=== PATIENT | male | born 1995 | race Caucasian/White ===

== ENCOUNTER 2017-03-23 18:04 | Emergency (ER) | payer OTHER ==
[2017-03-23 18:09] VITALS: BP 118/76; PULSE 118; RESP 20; TEMP 100.1
--- NOTE | 2017-03-23 18:24 | ED ---
General Adult HPI - General Chief complaint: Recheck/Abnormal Lab/Rx Stated complaint: pain tail bone Time Seen by Provider: 03/23/17 18:13 Source: patient, RN notes reviewed Mode of arrival: ambulatory Limitations: no limitations - History of Present Illness Initial comments: 22 yo male presents to the ER with a chief complaint of elbow pain. The patient states that he has had this for a few days. The patient states that there has been no drainage from the area. He denies any history of this. He denies any nausea vomiting fever or chills. He states he was concerned due to the increased pains without that he should be evaluated. There is no falls traumas or injury. Patient denies any recent fever, chills, shortness of breath , chest pain, back pain, abdominal pain, nausea vomiting, numbness or tingling, dysuria or hematuria, constipation or diarrhea, headaches or visual changes, or any other current symptoms. - Related Data Previous Rx's Medication Instructions Recorded Cephalexin [Keflex] 500 mg PO Q6HR #40 cap 03/23/17 Sulfamethox-Tmp 800-160Mg [Bactrim 2 each PO Q12HR #56 tab 03/23/17 DS 800-160 mg] Allergies Allergy/AdvReac Type Severity Reaction Status Date / Time No Known Allergies Allergy Verified 03/23/17 18:09 Review of Systems ROS Statement: Those systems with pertinent positive or pertinent negative responses have been documented in the HPI. ROS Other: All systems not noted in ROS Statement are negative. Past Medical History Past Medical History: No Reported History History of Any Multi-Drug Resistant Organisms: None Reported Past Surgical History: Tonsillectomy Past Psychological History: No Psychological Hx Reported Smoking Status: Current every day smoker Past Alcohol Use History: Rare Past Drug Use History: Marijuana General Exam Limitations: no limitations General appearance: alert, in no apparent distress ENT exam: Present: normal exam, mucous membranes moist Neck exam: Present: normal inspection. Absent: tenderness, meningismus, lymphadenopathy Respiratory exam: Present: normal lung sounds bilaterally. Absent: respiratory distress, wheezes, rales, rhonchi, stridor Cardiovascular Exam: Present: regular rate, normal rhythm, normal heart sounds. Absent: systolic murmur, diastolic murmur, rubs, gallop, clicks Extremities exam: Present: normal inspection, full ROM, normal capillary refill. Absent: tenderness, pedal edema, joint swelling, calf tenderness Back exam: Present: full ROM, other (Appears to have a pilonidal cyst). Absent : tenderness, CVA tenderness (R), CVA tenderness (L) Neurological exam: Present: alert, oriented X3 Skin exam: Present: warm, dry, intact, normal color. Absent: rash Course Vital Signs 03/23/17 18:06 Temperature 100.1 F H Pulse Rate 118 H Respiratory 20 Rate Blood Pressure 118/76 O2 Sat by Pulse 98 Oximetry Procedures - Procedures Initial comment: Dear was cleaned and prepped. 18-gauge needle was used to excise the lesion. No purulent material was excised. Only blood. Medical Decision Making - Medical Decision Making 22-year-old male presents with appears to be a pilonidal cyst. At this time the cyst was both an 18-gauge needle and no purulent material was excised. At this time we did discuss that we will continue antibiotics for the patient. We discussed sitz bath we discussed warm compresses and care. We did discuss that he will most likely need to return for drainage in one to 2 days. The patient stated that he understood. Plan questions have been answered. They will be discharged. Disposition Clinical Impression: Pilonidal disease Disposition: HOME SELF-CARE Condition: Stable Instructions: Abscess (ED) Additional Instructions: Please use medication as discussed. Please follow up with family doctor if symptoms have not improved over the next two days. Please return to the emergency room if your symptoms increase or worsen or for any other concerns. Prescriptions: Cephalexin [Keflex] 500 mg PO Q6HR #40 cap Sulfamethox-Tmp 800-160Mg [Bactrim DS 800-160 mg] 2 each PO Q12HR #56 tab Referrals: Macario Suh MD [STAFF PHYSICIAN] - 1-2 days Time of Disposition: 18:28
[2017-03-23] MEDS ORDERED: HYDROcodone/APAP 5-325MG 1 EACH TAB PO STA (18:28)
--- NOTE | 2017-04-24 18:03 | CDI ---
Documentation Clarification OP Dear Ms. Fox We need an addendum clarifying whether a true "excision" of pilonidal cyst was done OR if procedure was "incision & drainage" of pilonidal cyst. You describe using a "needle" which tends to be used in [employer]. We usually see "knife" or "scalpel" used for "excision" procedures. Can you do an addendum clarifying? Perhaps the "Dragon" did not "hear" you correctly. Thank you, Katerin Phan Pharmacist Apprentice [facility]
== END 2017-03-23 18:38 | disposition home or self-care (01) ==
LOC: EC 18:04
DX: L05.91 Pilonidal cyst without abscess (principal); F17.200 Nicotine dependence, unspecified, uncomplicated
CPT/HCPCS: 10080; 99283

== ENCOUNTER 2017-03-27 20:55 | Inpatient (IN) | payer OTHER ==
[2017-03-27] MEDS ORDERED: HYDROcodone/APAP 5-325MG 1 EACH TAB PO STA (21:16)
--- NOTE | 2017-03-27 21:18 | ED ---
Skin/Abscess/FB HPI - General Chief complaint: Skin/Abscess/Foreign Body Stated complaint: Back Pain Time Seen by Provider: 03/27/17 21:04 Source: patient Mode of arrival: ambulatory Limitations: no limitations - History of Present Illness Initial comments: This patient is a 22-year-old man who presents to be evaluated for what he believes is a pilonidal cyst. The patient first noticed changes near his tailbone a little under a week ago. There was a little bit of swelling and tenderness. This increased over the following couple days and he was seen here about 3 days ago. He explains that the provider put a needle into the cyst to see if any fluid could be obtained and nothing was expressed. He was given course of antibiotics which she states she has been taking and noted that the swelling there had increased and he is having more tenderness. In addition the patient noted fever today. Patient denies any other symptoms. No change in urination or bowel movements. MD complaint: abscess/boil Onset/Timin -: week(s) (1) Tetanus Up to Date: yes Location: buttocks Severity: moderate Quality: aching Consistency: constant Improves with: none Worsens with: palpation Context: none Associated symptoms: fever Treatments Prior to Arrival: antibiotic (Bactrim and Keflex), prescription analgesic - Related Data Home Medications Medication Instructions Recorded Confirmed Sulfamethox-Tmp 800-160Mg [Bactrim 2 tab PO Q12HR 03/27/17 03/27/17 DS 800-160 mg] Previous Rx's Medication Instructions Recorded Cephalexin [Keflex] 500 mg PO Q6HR #40 cap 03/23/17 Allergies Allergy/AdvReac Type Severity Reaction Status Date / Time No Known Allergies Allergy Verified 03/27/17 21:47 Review of Systems ROS Statement: Those systems with pertinent positive or pertinent negative responses have been documented in the HPI. ROS Other: All systems not noted in ROS Statement are negative. Constitutional: Reports: fever. Denies: chills Respiratory: Denies: cough, dyspnea Cardiovascular: Denies: chest pain, palpitations Gastrointestinal: Denies: vomiting, diarrhea Genitourinary: Denies: dysuria Musculoskeletal: Denies: back pain Skin: Reports: as per HPI, lesions Past Medical History Past Medical History: No Reported History History of Any Multi-Drug Resistant Organisms: None Reported Past Surgical History: Tonsillectomy Past Psychological History: No Psychological Hx Reported Smoking Status: Current every day smoker Past Alcohol Use History: Rare Past Drug Use History: Marijuana General Exam Limitations: no limitations General appearance: alert, in no apparent distress Eye exam: Present: normal appearance Respiratory exam: Present: normal lung sounds bilaterally. Absent: respiratory distress, wheezes, rales, rhonchi, stridor Cardiovascular Exam: Present: normal rhythm, tachycardia (The rate is 108 at my exam), normal heart sounds. Absent: systolic murmur, diastolic murmur, rubs, gallop GI/Abdominal exam: Present: soft. Absent: tenderness, guarding, rebound Extremities exam: Present: normal inspection, normal capillary refill. Absent: pedal edema, calf tenderness Skin exam: Present: warm, dry, intact, normal color, other (Patient has an approximately 2 and half centimeter diameter pilonidal cyst with small amount of overlying erythema and some mild to moderate tenderness.) Course Vital Signs 03/27/17 20:59 Temperature 101.8 F H Pulse Rate 120 H Respiratory 16 Rate Blood Pressure 116/58 O2 Sat by Pulse 95 Oximetry Medical Decision Making - Lab Data Result diagrams: 03/27/17 22:20 03/27/17 22:20 Lab Results 03/27/17 03/27/17 Range/Units 22:20 22:20 WBC 14.5 H (3.8-10.6) k/uL RBC 4.17 L (4.30-5.90) m/uL Hgb 12.4 L (13.0-17.5) gm/dL Hct 34.7 L (39.0-53.0) % MCV 83.1 (80.0-100.0) fL MCH 29.7 (25.0-35.0) pg MCHC 35.7 (31.0-37.0) g/dL RDW 13.0 (11.5-15.5) % Plt Count 318 (150-450) k/uL Neutrophils % 77 % Lymphocytes % 11 % Monocytes % 7 % Eosinophils % 2 % Basophils % 1 % Neutrophils # 11.2 H (1.3-7.7) k/uL Lymphocytes # 1.6 (1.0-4.8) k/uL Monocytes # 1.1 H (0-1.0) k/uL Eosinophils # 0.3 (0-0.7) k/uL Basophils # 0.1 (0-0.2) k/uL Sodium 139 (137-145) mmol/L Potassium 4.1 (3.5-5.1) mmol/L Chloride 103 (98-107) mmol/L Carbon Dioxide 23 (22-30) mmol/L Anion Gap 13 mmol/L BUN 16 (9-20) mg/dL Creatinine 1.20 (0.66-1.25) mg/dL Est GFR (MDRD) Af Amer >60 (>60 ml/min/1.73 sqM) Est GFR (MDRD) Non-Af >60 (>60 ml/min/1.73 sqM) Glucose 87 (74-99) mg/dL Calcium 9.5 (8.4-10.2) mg/dL Disposition Clinical Impression: Pilonidal abscess Disposition: ADMITTED IP TO THIS HOSP Condition: Fair Referrals: None,Stated [Primary Care Provider] - 1-2 days
[2017-03-27] MEDS ORDERED: RX INFO: IV CONTRAST WAS GIVEN 1 EACH MISC MISCELLANE PRN (21:23)
[2017-03-27] MEDS ORDERED: IBUPROFEN 400 MG TAB PO STA (21:25)
[2017-03-27 22:35] LABS: Basophils # (A) 0.1 k/uL (0-0.2); Basophils % (A) 1 %; CH 30.1; CHCM 36.4; Eosinophils # (A) 0.3 k/uL (0-0.7); Eosinophils % (A) 2 %; HCT 34.7 % (39.0-53.0); HDW 3.31; HGB 12.4 gm/dL (13.0-17.5); Luc # (Auto) 0.27; Luc % (Auto) 2; Lymphocytes # (A) 1.6 k/uL (1.0-4.8); Lymphocytes % (A) 11 %; MCH 29.7 pg (25.0-35.0); MCHC 35.7 g/dL (31.0-37.0); MCV 83.1 fL (80.0-100.0); Mean Platelet Volume 6.4; Monocytes # (A) 1.1 k/uL (0-1.0); Monocytes % (A) 7 %; Neutrophils # (A) 11.2 k/uL (1.3-7.7); Neutrophils % (A) 77 %; RBC 4.17 m/uL (4.30-5.90); WBC 14.5 k/uL (3.8-10.6); WBC (Perox) 14.43
[2017-03-27 22:46] LABS: Anion Gap 13 mmol/L; Blood Urea Nitrogen 16 mg/dL (9-20); Calcium 9.5 mg/dL (8.4-10.2); Carbon Dioxide 23 mmol/L (22-30); Chloride 103 mmol/L (98-107); Glucose 87 mg/dL (74-99); Non-African American GFR(MDRD) >60 (>60 ml/min/1.73 sqM); Potassium 4.1 mmol/L (3.5-5.1); Sodium 139 mmol/L (137-145)
--- NOTE | 2017-03-27 22:56 | CT ---
EXAM: CT Pelvis With Intravenous Contrast. CLINICAL HISTORY: Reason: evaluate pilonidal cyst TECHNIQUE: Axial computed tomography images of the pelvis with intravenous contrast. CTDI is 14.9 mGy and DLP is 441.2 mGy-cm. This CT exam was performed using one or more of the following dose reduction techniques: automated exposure control, adjustment of the mA and/or kV according to patient size, and/or use of iterative reconstruction technique. COMPARISON: No relevant prior studies available. FINDINGS: Bowel: Unremarkable. No obstruction. No mucosal thickening. Appendix: No findings to suggest acute appendicitis. Bladder: Unremarkable. No mass. Reproductive: Unremarkable as visualized. Lymph nodes: Unremarkable. No enlarged lymph nodes. Vasculature: Unremarkable. No distal aortic aneurysm. Bones: Thick walled hypodense structure with surrounding inflammatory change is noted overlying the inferior aspect of the sacrum measuring 4.7 x 3.6 x 2.6 cm in size. No gas is contained within this lesion. Although the deep margins of this lesion closely approximate the underlying sacral bone, there is no cortical erosion. No acute fracture. IMPRESSION: 4.7 x 3.6 x 2.6 cm thick walled structure with surrounding inflammatory change overlying the inferior sacrum, most suggestive of abscess or evolving hematoma.
[2017-03-27] MEDS ORDERED: VANCOMYCIN 1,500 MG in SODIUM CHLORIDE 0.9% 250 ML IVPB ONE (23:24)
[2017-03-28] MEDS ORDERED: ONDANSETRON 4 MG/2 ML VIAL IVP PRN
[2017-03-28] MEDS ORDERED: NALOXONE 0.4 MG/ML 1 ML VIAL IV PRN
[2017-03-28] MEDS: SODIUM CHLORIDE 0.9% 1,000 ML IV SCH ×3 (00:16→15:44)
[2017-03-28] MEDS: ACETAMINOPHEN TAB 325 MG TAB PO PRN ×3 (03:19→23:35)
[2017-03-28 07:24] LABS: Basophils # (A) 0.1 k/uL (0-0.2); Basophils % (A) 0 %; CH 29.6; CHCM 35.2; Eosinophils # (A) 0.3 k/uL (0-0.7); Eosinophils % (A) 2 %; HCT 36.3 % (39.0-53.0); HDW 3.38; HGB 12.5 gm/dL (13.0-17.5); Luc % (Auto) 2; Lymphocytes # (A) 1.5 k/uL (1.0-4.8); Lymphocytes % (A) 11 %; MCHC 34.4 g/dL (31.0-37.0); MCV 84.4 fL (80.0-100.0); Mean Platelet Volume 6.6; Monocytes % (A) 7 %; Neutrophils # (A) 10.6 k/uL (1.3-7.7); Neutrophils % (A) 77 %; RBC 4.31 m/uL (4.30-5.90); RDW 12.9 % (11.5-15.5); WBC 13.8 k/uL (3.8-10.6); WBC (Perox) 14.27
[2017-03-28 07:41] LABS: Anion Gap 9 mmol/L; Blood Urea Nitrogen 15 mg/dL (9-20); Carbon Dioxide 25 mmol/L (22-30); Chloride 105 mmol/L (98-107); Glucose 83 mg/dL (74-99); Non-African American GFR(MDRD) >60 (>60 ml/min/1.73 sqM); Potassium 4.5 mmol/L (3.5-5.1); Sodium 139 mmol/L (137-145)
[2017-03-28] MEDS: HYDROmorphone 2 MG/ML 1 ML SYRINGE IVP PRN ×5 (07:49→21:55)
[2017-03-28] MEDS ORDERED: IV VANCOMYCIN PER PHARMACY 1 EACH MISC MISCELLANE PRN (11:46)
--- NOTE | 2017-03-28 11:49 | P.PN ---
Progress Note - Text Patient seen and evaluated. Plan for surgery tomorrow, late morning.
[2017-03-28] MEDS: VANCOMYCIN 1,500 MG in SODIUM CHLORIDE 0.9% 250 ML IVPB SCH ×2 (12:42→17:29)
[2017-03-28] MEDS ORDERED: HYDROmorphone 1 MG/ML 1 ML SYRINGE IVP PRN (19:50)
[2017-03-28] MEDS ORDERED: LACTATED RINGERS 1,000 ML IV SCH (20:00)
[2017-03-28] MEDS: KETOROLAC 30 MG/ML 1 ML VIAL IVP SCH (23:04)
[2017-03-28] MEDS: AMPICILLIN-SULBACTAM 3 GM in SODIUM CHLORIDE 0.9% 100 ML IVPB SCH (23:05)
[2017-03-29] MEDS: SODIUM CHLORIDE 0.9% 1,000 ML IV SCH ×4 (00:17→20:48)
[2017-03-29] MEDS: VANCOMYCIN 1,500 MG in SODIUM CHLORIDE 0.9% 250 ML IVPB SCH ×3 (00:17→20:16)
[2017-03-29] MEDS: HYDROmorphone 2 MG/ML 1 ML SYRINGE IVP PRN ×5 (01:21→20:49)
[2017-03-29] MEDS: AMPICILLIN-SULBACTAM 3 GM in SODIUM CHLORIDE 0.9% 100 ML IVPB SCH ×3 (05:47→20:14)
[2017-03-29] MEDS: KETOROLAC 30 MG/ML 1 ML VIAL IVP SCH ×3 (05:47→20:01)
--- NOTE | 2017-03-29 08:22 | P.GSCN ---
History of Present Illness Consult date: 03/28/17 Reason for Consult: Pilonidal cyst, buttock abscess Requesting physician: Yoni Bowling History of present illness: The patient is a 22-year-old gentleman who presented to the emergency room 2 different occasions for a painful pilonidal cyst. He was treated as outpatient with Bactrim antibiotics which his symptoms have progressed. He now presents with fevers, chills including increasing pain and swelling of the buttock. CT of the abdomen and pelvis is consistent with a deep subcutaneous infection. Given his presentation of leukocytosis, fevers and failed outpatient management , Gen. surgery is asked for consultation and subsequent admission. Review of Systems REVIEW OF ORGAN SYSTEMS: CONSTITUTIONAL: Has fever and chills. Denies recent weight loss or weight gain. HEENT: Denies any trouble with vision, hearing or nosebleeds. Wears glasses. No difficulty swallowing. LYMPHATIC: The patient denies any lumps and bumps around the neck. ENDOCRINE: Denies any thyroid disorders. Denies any blood sugar glucose intolerance. RESPIRATORY: Denies pneumonia. Denies any troubles with breathing or dyspnea on exertion. CARDIOVASCULAR: Denies any chest pain, palpitations, or recent heart attacks. GASTROINTESTINAL: Denies heart burn, constipation or bright red blood per rectum. GENITOURINARY: Denies any blood in urine or increased urinary frequency. MUSCULOSKELETAL: Denies any back pain, stiffness, joint arthritis. NEUROLOGIC: Denies any numbness or tingling along the distal extremities. No seizure disorders or headaches. PSYCHIATRIC: Denies depression or suidical ideation. HEMATOLOGIC: Denies any abnormal bleeding or bruising. BREASTS: Denies any breast lumps, pain or nipple discharge. Past Medical History Past Medical History: No Reported History Additional Past Medical History / Comment(s): transgender History of Any Multi-Drug Resistant Organisms: None Reported Past Surgical History: Tonsillectomy Past Psychological History: No Psychological Hx Reported Smoking Status: Current every day smoker Past Alcohol Use History: Rare Past Drug Use History: Marijuana - Past Family History Mother Family Medical History: No Reported History Medications and Allergies Home Medications Medication Instructions Recorded Confirmed Type Sulfamethox-Tmp 800-160Mg [Bactrim 2 tab PO Q12HR 03/27/17 03/27/17 History DS 800-160 mg] Allergies Allergy/AdvReac Type Severity Reaction Status Date / Time No Known Allergies Allergy Verified 03/27/17 21:47 Surgical - Exam Vital Signs Temp Pulse Resp BP Pulse Ox 101.8 F H 120 H 16 116/58 95 03/27/17 20:59 03/27/17 20:59 03/27/17 20:59 03/27/17 20:59 03/27/17 20:59 GENERAL: Well developed and in no acute distress. Pleasant. HEENT: No sclera icterus. Extraocular movements grossly intact. Moist buccal mucosa. Head is atraumatic, normocephalic. Hears conversational speech. No nasal drainage. NECK: Supple without lymphadenopathy. No JV distention. CHEST: Non-labored respirations and equal bilateral excursions. CARDIOVASCULAR: Regular rate and rhythm. Palpable 2+ radial pulses. ABDOMEN: Soft, nontender. Nondistended. MUSCULOSKELETAL: No clubbing, cyanosis or edema. NEUROLOGIC: No focal or lateralizing signs. PSYCH: Appropriate affect. Alert and oriented to person, place and time. SKIN: Pilonidal cyst with moderate erythema and cellulitis. Results - Labs 03/28/17 06:54 03/28/17 06:54 Abnormal Lab Results - Last 24 Hours (Table) 03/27/17 03/28/17 Range/Units 22:20 06:54 WBC 14.5 H 13.8 H (3.8-10.6) k/uL RBC 4.17 L (4.30-5.90) m/uL Hgb 12.4 L 12.5 L (13.0-17.5) gm/dL Hct 34.7 L 36.3 L (39.0-53.0) % Neutrophils # 11.2 H 10.6 H (1.3-7.7) k/uL Monocytes # 1.1 H (0-1.0) k/uL Diabetes panel 03/27/17 03/28/17 Range/Units 22:20 06:54 Sodium 139 139 (137-145) mmol/L Potassium 4.1 4.5 (3.5-5.1) mmol/L Chloride 103 105 (98-107) mmol/L Carbon Dioxide 23 25 (22-30) mmol/L BUN 16 15 (9-20) mg/dL Creatinine 1.20 1.12 (0.66-1.25) mg/dL Glucose 87 83 (74-99) mg/dL Calcium 9.5 9.0 (8.4-10.2) mg/dL Calcium panel 03/27/17 03/28/17 Range/Units 22:20 06:54 Calcium 9.5 9.0 (8.4-10.2) mg/dL Pituitary panel 03/27/17 03/28/17 Range/Units 22:20 06:54 Sodium 139 139 (137-145) mmol/L Potassium 4.1 4.5 (3.5-5.1) mmol/L Chloride 103 105 (98-107) mmol/L Carbon Dioxide 23 25 (22-30) mmol/L BUN 16 15 (9-20) mg/dL Creatinine 1.20 1.12 (0.66-1.25) mg/dL Glucose 87 83 (74-99) mg/dL Calcium 9.5 9.0 (8.4-10.2) mg/dL Adrenal panel 03/27/17 03/28/17 Range/Units 22:20 06:54 Sodium 139 139 (137-145) mmol/L Potassium 4.1 4.5 (3.5-5.1) mmol/L Chloride 103 105 (98-107) mmol/L Carbon Dioxide 23 25 (22-30) mmol/L BUN 16 15 (9-20) mg/dL Creatinine 1.20 1.12 (0.66-1.25) mg/dL Glucose 87 83 (74-99) mg/dL Calcium 9.5 9.0 (8.4-10.2) mg/dL - Imaging CT scan - pelvis: report reviewed (Moderate erythema and induration with pilonidal cyst and no intra-abdominal pathology), image reviewed Assessment and Plan (1) Failure of outpatient treatment Status: Acute (2) Leukocytosis Status: Acute (3) Sepsis Status: Acute (4) Fever Status: Acute (5) Fever and chills Status: Acute (6) Pilonidal abscess Status: Acute (7) Pilonidal disease Status: Acute Plan: 1. Anticipated inpatient hospitalization over 2 nights for sepsis and pilonidal cyst and failed outpatient management. 2. Recommend incision and drainage with packing reviewed. 3. Will need home health care for wound care management. 4. IV antibiotics to include vancomycin with pharmacy to dose. 5. DVT prophylaxis. 6. Incentive spirometer.
[2017-03-29 08:24] LABS: Basophils # (A) 0.1 k/uL (0-0.2); Basophils % (A) 0 %; CH 29.4; CHCM 34.5; Eosinophils # (A) 0.3 k/uL (0-0.7); Eosinophils % (A) 2 %; HCT 34.9 % (39.0-53.0); HGB 12.1 gm/dL (13.0-17.5); Luc # (Auto) 0.27; Luc % (Auto) 2; Lymphocytes # (A) 1.8 k/uL (1.0-4.8); Lymphocytes % (A) 12 %; MCH 29.7 pg (25.0-35.0); MCHC 34.7 g/dL (31.0-37.0); MCV 85.6 fL (80.0-100.0); Mean Platelet Volume 6.4; Monocytes # (A) 0.9 k/uL (0-1.0); Monocytes % (A) 6 %; Neutrophils # (A) 11.8 k/uL (1.3-7.7); Neutrophils % (A) 79 %; Poikilocytosis Slight; RBC 4.08 m/uL (4.30-5.90); RDW 12.9 % (11.5-15.5); WBC 15.1 k/uL (3.8-10.6); WBC (Perox) 15.95
--- NOTE | 2017-03-29 08:25 | P.GSHP ---
History of Present Illness H&P Date: 03/28/17 Reason for Admission: Pilonidal cyst, buttock abscess History of present illness: The patient is a 22-year-old gentleman who presented to the emergency room 2 different occasions for a painful pilonidal cyst. He was treated as outpatient with Bactrim antibiotics which his symptoms have progressed. He now presents with fevers, chills including increasing pain and swelling of the buttock. CT of the abdomen and pelvis is consistent with a deep subcutaneous infection. Given his presentation of leukocytosis, fevers and failed outpatient management , Gen. surgery is asked for consultation and subsequent admission. Review of Systems REVIEW OF ORGAN SYSTEMS: CONSTITUTIONAL: Has fever and chills. Denies recent weight loss or weight gain. HEENT: Denies any trouble with vision, hearing or nosebleeds. Wears glasses. No difficulty swallowing. LYMPHATIC: The patient denies any lumps and bumps around the neck. ENDOCRINE: Denies any thyroid disorders. Denies any blood sugar glucose intolerance. RESPIRATORY: Denies pneumonia. Denies any troubles with breathing or dyspnea on exertion. CARDIOVASCULAR: Denies any chest pain, palpitations, or recent heart attacks. GASTROINTESTINAL: Denies heart burn, constipation or bright red blood per rectum. GENITOURINARY: Denies any blood in urine or increased urinary frequency. MUSCULOSKELETAL: Denies any back pain, stiffness, joint arthritis. NEUROLOGIC: Denies any numbness or tingling along the distal extremities. No seizure disorders or headaches. PSYCHIATRIC: Denies depression or suidical ideation. HEMATOLOGIC: Denies any abnormal bleeding or bruising. BREASTS: Denies any breast lumps, pain or nipple discharge. Surgical - Exam GENERAL: Well developed and in no acute distress. Pleasant. HEENT: No sclera icterus. Extraocular movements grossly intact. Moist buccal mucosa. Head is atraumatic, normocephalic. Hears conversational speech. No nasal drainage. NECK: Supple without lymphadenopathy. No JV distention. CHEST: Non-labored respirations and equal bilateral excursions. CARDIOVASCULAR: Regular rate and rhythm. Palpable 2+ radial pulses. ABDOMEN: Soft, nontender. Nondistended. MUSCULOSKELETAL: No clubbing, cyanosis or edema. NEUROLOGIC: No focal or lateralizing signs. PSYCH: Appropriate affect. Alert and oriented to person, place and time. SKIN: Pilonidal cyst with moderate erythema and cellulitis. Results - Imaging CT scan - pelvis: report reviewed (Moderate erythema and induration with pilonidal cyst and no intra-abdominal pathology), image reviewed Past Medical History Past Medical History: No Reported History Additional Past Medical History / Comment(s): transgender History of Any Multi-Drug Resistant Organisms: None Reported Past Surgical History: Tonsillectomy Past Psychological History: No Psychological Hx Reported Smoking Status: Current every day smoker Past Alcohol Use History: Rare Past Drug Use History: Marijuana - Past Family History Mother Family Medical History: No Reported History Medications and Allergies Home Medications Medication Instructions Recorded Confirmed Type Sulfamethox-Tmp 800-160Mg [Bactrim 2 tab PO Q12HR 03/27/17 03/27/17 History DS 800-160 mg] Allergies Allergy/AdvReac Type Severity Reaction Status Date / Time No Known Allergies Allergy Verified 03/27/17 21:47 Surgical - Exam Vital Signs Temp Pulse Resp BP Pulse Ox 101.8 F H 120 H 16 116/58 95 03/27/17 20:59 03/27/17 20:59 03/27/17 20:59 03/27/17 20:59 03/27/17 20:59 Results - Labs 03/28/17 06:54 03/28/17 06:54 Abnormal Lab Results - Last 24 Hours (Table) 03/28/17 Range/Units 17:48 Plasma Lactic Acid Geovanni 0.5 L (0.7-2.0) mmol/L Assessment and Plan (1) Failure of outpatient treatment Status: Acute (2) Leukocytosis Status: Acute (3) Sepsis Status: Acute (4) Fever Status: Acute (5) Fever and chills Status: Acute (6) Pilonidal abscess Status: Acute (7) Pilonidal disease Status: Acute Plan: 1. Anticipated inpatient hospitalization over 2 nights for sepsis and pilonidal cyst and failed outpatient management. 2. Recommend incision and drainage with packing reviewed. 3. Will need home health care for wound care management. 4. IV antibiotics to include vancomycin with pharmacy to dose. 5. DVT prophylaxis. 6. Incentive spirometer.
[2017-03-29 08:33] LABS: Anion Gap 9 mmol/L; Blood Urea Nitrogen 12 mg/dL (9-20); Carbon Dioxide 27 mmol/L (22-30); Chloride 101 mmol/L (98-107); Glucose 83 mg/dL (74-99); Non-African American GFR(MDRD) >60 (>60 ml/min/1.73 sqM); Potassium 4.4 mmol/L (3.5-5.1); Sodium 137 mmol/L (137-145)
--- NOTE | 2017-03-29 12:46 | P.HPADDEND ---
H&P Addendum H&P Addendum Date: 03/29/17 Patient seen and evaluated. Early this morning, patient ate a bag of Doritos before 9 AM. Case is now scheduled for later on in the evening. Patient recommended nothing by mouth at least 8 hours. He demonstrated understanding of the care plan.
[2017-03-29] MEDS ORDERED: VANCOMYCIN TROUGH DUE 1 EACH MISC MISCELLANE ONE (15:00)
[2017-03-29] MEDS ORDERED: IV FLUID CONTINUATION 1,000 ML IV ONE (15:23)
[2017-03-29] MEDS ORDERED: LIDOCAINE 1% 20 ML VIAL (10MG/ML) FOR IV START INTRADERMA ONE (15:39)
[2017-03-29] MEDS ORDERED: ACETAMINOPHEN IV (For NPO) 1,000 MG/100 ML VIAL IVPB ONE (16:02)
[2017-03-29] MEDS ORDERED: fentaNYL (PF) 50 MCG/ML 2 ML AMP ONE (18:11)
[2017-03-29] MEDS ORDERED: SUCCINYLCHOLINE CHLORIDE 100 MG/5 ML SYR IV ONE (18:11)
[2017-03-29] MEDS ORDERED: LIDOCAINE 1% INJ 10MG/ML (20 ML MDV) ONE (18:11)
[2017-03-29] MEDS ORDERED: MIDAZOLAM 2 MG/2 ML VIAL ONE (18:11)
[2017-03-29] MEDS ORDERED: PROPOFOL 10 MG/ML 20 ML VIAL IV ONE (18:11)
[2017-03-29] MEDS ORDERED: LACTATED RINGERS 1,000 ML IV ONE (18:23)
[2017-03-29] MEDS ORDERED: BUPIVACAIN-EPI 0.25%-1:200,000 30 ML VIAL SQ ONE (18:35)
--- NOTE | 2017-03-29 19:06 | P.PCN ---
Date of Procedure: 03/29/17 Preoperative Diagnosis: sepsis, pilonidal cyst, failed outpatient management Postoperative Diagnosis: Same Procedure(s) Performed: Excision of benign lesion 4 x 2 cm lower back, drainage of complex pilonidal abscess 3 x 8 x 6 cm Implants: Anesthesia: GETA, local (60 mL) Surgeon: Selam Lloyd Estimated Blood Loss (ml): 5 Pathology: other (Skin lesion) Condition: stable Disposition: floor Indications for Procedure: Operative Findings: Complicated palatal abscess under moderate pressure with malodor and purulence drained. Aerobic and anaerobic cultures obtained. Substance tissue excised 4 x 1.5 cm over pilonidal abscess. Description of Procedure:
[2017-03-29] MEDS: MEPERIDINE 50 MG/ML SYRINGE IVP ONE ×2 (19:15→19:36)
--- NOTE | 2017-03-29 20:01 | P.PN ---
Progress Note - Text The patient requested that Becka be updated on his care. Becka was contacted at [phone] about him doing well after surgery.
[2017-03-30] MEDS: HYDROmorphone 2 MG/ML 1 ML SYRINGE IVP PRN ×2 (00:35→03:33)
[2017-03-30] MEDS: AMPICILLIN-SULBACTAM 3 GM in SODIUM CHLORIDE 0.9% 100 ML IVPB SCH ×5 (00:35→23:56)
[2017-03-30] MEDS: KETOROLAC 30 MG/ML 1 ML VIAL IVP SCH ×5 (01:32→23:57)
[2017-03-30] MEDS: VANCOMYCIN 1,500 MG in SODIUM CHLORIDE 0.9% 250 ML IVPB SCH ×3 (01:36→16:43)
[2017-03-30] MEDS: SODIUM CHLORIDE 0.9% 1,000 ML IV SCH ×4 (01:41→19:28)
[2017-03-30 08:12] LABS: Basophils # (A) 0.1 k/uL (0-0.2); Basophils % (A) 0 %; CH 29.6; CHCM 34.4; Eosinophils # (A) 0.3 k/uL (0-0.7); Eosinophils % (A) 2 %; HCT 33.3 % (39.0-53.0); HDW 3.34; HGB 11.3 gm/dL (13.0-17.5); Luc # (Auto) 0.23; Luc % (Auto) 2; Lymphocytes # (A) 1.7 k/uL (1.0-4.8); Lymphocytes % (A) 15 %; MCH 29.5 pg (25.0-35.0); MCHC 34.1 g/dL (31.0-37.0); MCV 86.4 fL (80.0-100.0); Mean Platelet Volume 6.4; Monocytes # (A) 0.7 k/uL (0-1.0); Monocytes % (A) 6 %; Neutrophils % (A) 75 %; RBC 3.85 m/uL (4.30-5.90); RDW 12.9 % (11.5-15.5); WBC (Perox) 12.42
[2017-03-30 08:40] LABS: Anion Gap 7 mmol/L; Blood Urea Nitrogen 12 mg/dL (9-20); Calcium 8.8 mg/dL (8.4-10.2); Carbon Dioxide 29 mmol/L (22-30); Chloride 102 mmol/L (98-107); Glucose 90 mg/dL (74-99); Non-African American GFR(MDRD) >60 (>60 ml/min/1.73 sqM); Potassium 4.3 mmol/L (3.5-5.1); Sodium 138 mmol/L (137-145)
--- NOTE | 2017-03-30 11:07 | P.PN ---
Subjective 22-year-old male patient being seen and examined currently resting comfortably in bed states pain medication effective for pain control. Did speak with the nurse case management who will be setting up home care when the patient is medically stable to be discharged. Patient is postop on March 29 excision of a benign lesion 4 x 2 cm lower back drainage of a complex pilonidal abscess 3 x 8 x 6 cm. Hospital course A 22-year-old male presented on the day of admission to the emergency room to be evaluated for increased swelling and tenderness around the tailbone. Patient stated he believes he has a pilonidal cyst. Patient was seen in the emergency room 3 days prior to this incident. He states at that time he was given a course of antibiotics. He also stated that they put a needle in the cystocele any fluid could be obtained. Patient stated he was discharged and that he continued to have swelling and pain and tenderness in the area. Patient stated that he had been diuresed chilled at home. There was no change in urination or bowel movements. Patient stated it was a constant aching pain in the bilateral buttocks emergency room the temp was 101.8 tachycardic heart rate in the 120s with a white count of 14.5. Patient was septic suspect due to the pilonidal abscess. Patient started on IV antibiotics and admitted to the services of the attending. Patient did undergo March 29 and excision of a benign lesion 4 x 2 cm lower back with a drainage of a complex pilonidal abscess 3 x 8 x 6 cm a infectious disease consultation has been requested. Objective - Vital Signs Vital signs: Vital Signs Temp 99.1 F 03/30/17 07:00 Pulse 83 03/30/17 07:00 Resp 18 03/30/17 07:00 BP 139/69 03/30/17 07:00 Pulse Ox 97 03/30/17 07:00 Intake & Output 03/29/17 03/30/17 03/30/17 18:59 06:59 18:59 Intake Total 300 550 Output Total 5 Balance 295 550 Intake: IV 300 200 Intake, IV Titration 350 Amount Ampicillin-Sulbactam 3 gm 100 In Sodium Chloride 0.9% 100 ml @ 100 mls/hr IVPB Q6HR RAMA Rx#:[id number] Vancomycin 1,500 mg In 250 Sodium Chloride 0.9% 250 ml @ 125 mls/hr IVPB Q8HR RAMA Rx#:[id number] Output: Estimated Blood Loss 5 Other: # Voids 3 3 - Exam Exam 22-year-old male resting in bed pleasant cooperative states pain medication effective for pain control Lungs essentially clear adequate air movement on room air no cough noted Heart S1-S2 audible and regular Abdomen soft states urinating no difficulty states had a bowel movement the day before. No reports of nausea vomiting. Soft nontender dressing to the surgical site dry. Extremities no evidence of edema - Labs CBC & Chem 7: 03/30/17 07:45 03/30/17 07:45 Labs: Abnormal Lab Results - Last 24 Hours (Table) 03/30/17 Range/Units 07:45 WBC 12.0 H (3.8-10.6) k/uL RBC 3.85 L (4.30-5.90) m/uL Hgb 11.3 L (13.0-17.5) gm/dL Hct 33.3 L (39.0-53.0) % Neutrophils # 9.0 H (1.3-7.7) k/uL Microbiology - Last 24 Hours (Table) 03/29/17 18:53 Gram Stain - Preliminary Cyst Wound Culture - Preliminary 03/29/17 18:53 Anaerobic Culture - Preliminary Cyst Assessment and Plan Plan: Impression Present on admission febrile leukocytosis tachycardic septic suspect due to pilonidal abscess failed outpatient treatment CAT scan abdomen and pelvis present on admission consistent with a deep subcutaneous infection Current every day smoker Pilonidal abscess acute History of pilonidal disease Plan Discuss with nurse case management will set up home care to follow patient in the outpatient setting Await infectious diseases recommendations Continue IV vancomycin as ordered DVT and GI prophylaxis Incentive spirometer every 1 hour while awake Pain control Further recommendations pending will follow The above dictated assessment and findings were discussed with Dr. Lloyd Impression and the plan of care have been dictated as directed. Hafsa Onofre nurse practitioner acting as a scribe for Dr. Lloyd
[2017-03-30] MEDS ORDERED: HYDROmorphone 1 MG/ML 1 ML SYRINGE IVP PRN (13:41)
[2017-03-30] MEDS ORDERED: HYDROcodone/APAP 7.5-325MG 1 EACH TAB PO PRN (13:41)
--- NOTE | 2017-03-30 19:45 | P.OP ---
Date of Procedure: 03/29/17 Preoperative Diagnosis: Postoperative Diagnosis: Procedure(s) Performed: Implants: Indications for Procedure: Operative Findings: Description of Procedure: SURGEON: PAKO HOBBS MD [employer] INTERN: None. PREOPERATIVE DIAGNOSES: 1. Sepsis. 2. Fevers. 3. Leukocytosis. 4. Complicated pilonidal abscess. 5. Failed outpatient antibiotic therapy. POSTOPERATIVE DIAGNOSES: 1. Sepsis. 2. Fevers. 3. Leukocytosis. 4. Complicated pilonidal abscess. 5. Failed outpatient antibiotic therapy. PROCEDURES PERFORMED: 1. Excision of soft tissue benign lesion 4 x 2 cm the cutaneous tissue of lower back for pilonidal abscess. 2. Open drainage of complicated pilonidal abscess extending to fascia 8 x 3 x 6 cm. 3. Mechanical debridement with 3 L warm normal saline solution of pilonidal abscess. ANESTHESIA: General. ESTIMATED BLOOD LOSS: 5 mL. SPECIMENS REMOVED: 1. Soft tissue excision. 2. Aerobic and anaerobic culture pilonidal abscess COMPLICATIONS: None. INDICATIONS: The patient is a 22-year-old male who presents with failed outpatient management of pilonidal abscess. He presented with fevers chills including sepsis. Despite broad-spectrum antibiotics, he continued to have fevers and worsening leukocytosis. Prompt surgical intervention was described. Benefits and risks of immediate drainage was reviewed including bleeding, infection, cosmetic deformity, need for further surgery, for which informed consent was obtained. DESCRIPTION OF PROCEDURE: The patient was brought to the operating room, laid in supine position. After general induction, the patient was repositioned to the prone jackknife position with the buttocks spread apart. The lower back and buttocks were prepped and draped in standard sterile fashion using Betadine. Prior to incision, a timeout protocol was confirmed with surgical team regarding patient's name, procedure to be performed, including preoperative medications for which he had received vancomycin. Large fluctuance palpated just above the gluteal cleft of the midline. A longitudinal excision of 4 x 2 cm was made after localizing the skin. Incision was deepened into subcutaneous tissue were immediately over 50 mL of yusuf purulent malodorous drainage was aspirated and under high pressure. Aerobic and anaerobic cultures were obtained. Along the bed of the wound the fascia was identified. No loculations were present using digital palpation. Bleeding was controlled with electro-Bovie cautery. Next, a total of 3 L of warm normal saline solution pulse lavage was used for mechanical debridement along the entire pocket of the wound. Next, the pocket was widely packed using 18 inches of 1-inch iodoform packing. The skin was cleansed. Next 4 x 4's followed by ABDs were placed and taped to the skin. The patient was awoken from anesthesia and transferred to the postanesthesia care in stable condition. Please note that the instrument, sponge, and needle count was verified correct by surgical pathologist. FINDINGS: 1. Complex 8 x 3 x 6 cm pilonidal abscess involving the subcutaneous tissue to the fascia.
[2017-03-30 23:08] VITALS: RESP 16
[2017-03-31] MEDS: VANCOMYCIN 1,500 MG in SODIUM CHLORIDE 0.9% 250 ML IVPB SCH ×2 (03:51→09:31)
[2017-03-31] MEDS: SODIUM CHLORIDE 0.9% 1,000 ML IV SCH ×3 (04:00→14:56)
[2017-03-31] MEDS: AMPICILLIN-SULBACTAM 3 GM in SODIUM CHLORIDE 0.9% 100 ML IVPB SCH ×2 (06:17→11:56)
[2017-03-31 07:27] VITALS: BP 127/70; PULSE 83; TEMP 98
[2017-03-31 09:24] LABS: Basophils # (A) 0.1 k/uL (0-0.2); Basophils % (A) 1 %; CH 29.8; CHCM 35.6; Eosinophils # (A) 0.4 k/uL (0-0.7); Eosinophils % (A) 4 %; HCT 35.4 % (39.0-53.0); HDW 3.58; HGB 12.6 gm/dL (13.0-17.5); Luc # (Auto) 0.26; Luc % (Auto) 3; Lymphocytes # (A) 1.9 k/uL (1.0-4.8); Lymphocytes % (A) 19 %; MCH 29.9 pg (25.0-35.0); MCHC 35.6 g/dL (31.0-37.0); Mean Platelet Volume 6.1; Monocytes # (A) 0.5 k/uL (0-1.0); Monocytes % (A) 5 %; Neutrophils # (A) 6.6 k/uL (1.3-7.7); Neutrophils % (A) 68 %; Poikilocytosis Slight; RBC 4.21 m/uL (4.30-5.90); RDW 12.6 % (11.5-15.5); WBC 9.6 k/uL (3.8-10.6); WBC (Perox) 10.24
[2017-03-31] MEDS: KETOROLAC 30 MG/ML 1 ML VIAL IVP SCH ×2 (09:26→11:58)
[2017-03-31 09:37] LABS: Anion Gap 10 mmol/L; Blood Urea Nitrogen 13 mg/dL (9-20); Calcium 9.4 mg/dL (8.4-10.2); Carbon Dioxide 28 mmol/L (22-30); Chloride 104 mmol/L (98-107); Glucose 96 mg/dL (74-99); Non-African American GFR(MDRD) >60 (>60 ml/min/1.73 sqM); Potassium 4.4 mmol/L (3.5-5.1); Sodium 142 mmol/L (137-145)
--- NOTE | 2017-03-31 13:28 | P.DS ---
Providers Date of admission: 03/28/17 00:07 Expected date of discharge: 03/31/17 Attending physician: Selam Lloyd Consults: 03/29/17 19:02 Consult Physician Routine Consulting Provider: Johnny Burton Consult Reason/Comments: Sepsis, pilonidal abscess Do you want consulting provider notified?: Yes, Notify in am Primary care physician: Stated None Hospital Course: Hospital course A 22-year-old male presented on the day of admission to the emergency room to be evaluated for increased swelling and tenderness around the tailbone. Patient stated he believes he has a pilonidal cyst. Patient was seen in the emergency room 3 days prior to this incident. He states at that time he was given a course of antibiotics. He also stated that they put a needle in the cystocele any fluid could be obtained. Patient stated he was discharged and that he continued to have swelling and pain and tenderness in the area. Patient stated that he had been diuresed chilled at home. There was no change in urination or bowel movements. Patient stated it was a constant aching pain in the bilateral buttocks emergency room the temp was 101.8 tachycardic heart rate in the 120s with a white count of 14.5. Patient was septic suspect due to the pilonidal abscess. Patient started on IV antibiotics and admitted to the services of the attending. Patient did undergo March 29 excision of a benign lesion 4 x 2 cm lower back with a drainage of a complex pilonidal abscess 3 x 8 x 6 cm a infectious disease was consulted. Dr. Burton did see patient on consultation recommendations were noted and appreciated. The wound care was per Dr. Burton's recommendations. The wound was addressed by Dr. Burton on the day of discharge. Wound care to area covered with by a 4 x 4 abd every Monday Aquacel silver rope into the coccyx wound The foster care case manager did set up home care to see the patient participate in the plan of care. Patient was felt to be hemodynamically stable and appropriate proceed with a discharge to home Impression Present on admission febrile leukocytosis tachycardic septic with sepsis met sirs criteria suspect due to pilonidal abscess failed outpatient treatment CAT scan abdomen and pelvis present on admission consistent with a deep subcutaneous infection Current every day smoker Pilonidal abscess acute History of pilonidal disease Complicated pilonidal abscess present on admission Excision and open drainage of a complicated pilonidal abscess The above dictated assessment and findings were discussed with Dr. Lloyd. Impression and the plan of care have been dictated as directed. Hafsa Onofre nurse practitioner acting as a scribe for Dr. Lloyd Patient Condition at Discharge: Fair Plan - Discharge Summary New Discharge Prescriptions: New Amoxic-Pot Clav 875-125Mg [Augmentin 875-125] 1 tab PO Q12HR #20 tablet HYDROcodone/APAP 7.5-325MG [[place] 7.5-325] 1 each PO Q4H PRN #30 tab PRN Reason: Moderate Pain Continue Cephalexin [Keflex] 500 mg PO Q6HR #40 cap Sulfamethox-Tmp 800-160Mg [Bactrim DS 800-160 mg] 2 tab PO Q12HR Discharge Medication List Cephalexin [Keflex] 500 mg PO Q6HR #40 cap 03/23/17 [Rx] Sulfamethox-Tmp 800-160Mg [Bactrim DS 800-160 mg] 2 tab PO Q12HR 03/27/17 [ History] Amoxic-Pot Clav 875-125Mg [Augmentin 875-125] 1 tab PO Q12HR #20 tablet [Rx] HYDROcodone/APAP 7.5-325MG [[place] 7.5-325] 1 each PO Q4H PRN #30 tab 03/31/17 [ Rx] Follow up Appointment(s)/Referral(s): None,Stated [Primary Care Provider] - 1-2 days Selam Lloyd MD [STAFF PHYSICIAN] - 04/04/17 Johnny Burton MD [STAFF PHYSICIAN] - 1 Week Discharge Disposition: HOME WITH HOME HEALTH SERVICES
--- NOTE | 2017-03-31 17:42 | P.CONS ---
History of Present Illness - Reason for Consult Consult date: 03/31/17 - Chief Complaint coccyx ulcer - History of Present Illness 22 year old male with short history of pain to the coccyx, abscess developed was seen in the outpatient setting. He was initiated with antibiotic therapy with Bactrim. Despite this the area became much worse. He developed fevers and chills. Because of this presented to Hospital. And there is evidence of an abscess at that site. He subsequently has undergone incision and drainage of that area. He is feeling somewhat better. ID consult request regarding wound care and antibiotic therapy. His fever and chills of now improved. Pain control is improved. Denies other acute difficulties. Review of Systems Fever chills and rigors have all improved HEENT:Denies headache or acute visual change. Denies sinus or mouth discomforts. Denies neck stiffness or pain. Denies significant oral cavity pain. Denies difficulty on swallowing. Lungs: Denies significant shortness of breath, cough, sputum production, or hemoptysis. Cardiovascular: Denies significant shortness of breath, chest pain, chest wall pain, orthopnea, dyspnea on exertion, syncope Gastrointestinal:Denies nausea, vomiting, diarrhea, constipation, hematemesis, melena, hematochezia. No no significant change of bowel habit noticed. Musculoskeletal: denies significant myalgias or arthralgias. No new joint swelling. Denies new back pain. Skin: As per the HPI Neuro: Denies headache or visual change. Denies any new onset weakness or difficulty with ambulation. Denies falls or seizures. Psychiatric:Denies anxiety or depression. Endocrine: Denies significant fatigue, denies significant weight loss or weight gain. Past Medical History Past Medical History: No Reported History Additional Past Medical History / Comment(s): transgender History of Any Multi-Drug Resistant Organisms: None Reported Past Surgical History: Tonsillectomy Past Psychological History: No Psychological Hx Reported Additional Psychological History / Comment(s): Single. His 2 young children. Relates that he is transgender. Lives with a significant other. No experience. No Travel history. 2 pet cats in the home they are not new. No ill exposures. Denies current recreational drug use no history of injection drug use Smoking Status: Current every day smoker Past Alcohol Use History: Rare Past Drug Use History: Marijuana - Past Family History Mother Family Medical History: No Reported History Medications and Allergies Home Medications and Allergies Comment(s): Please see the medication list Home Medications Medication Instructions Recorded Confirmed Type Sulfamethox-Tmp 800-160Mg [Bactrim 2 tab PO Q12HR 03/27/17 03/27/17 History DS 800-160 mg] Allergies Allergy/AdvReac Type Severity Reaction Status Date / Time No Known Allergies Allergy Verified 03/27/17 21:47 Physical Exam Vitals: Vital Signs Temp Pulse Resp BP BP Pulse Ox 03/31/17 07:00 98 F 83 16 127/70 96 03/30/17 23:00 98.2 F 61 16 137/64 98 Pleasant 22-year-old male who is in no acute distress. His pain is improved. No further fever chills or rigors. HEENT: Anicteric conjunctiva are pink and moist nasal mucosa grossly intact without significant lesions, there is no thrush. Adequate dentition Neck: The neck is supple without significant lymphadenopathy or thyromegaly. Lungs: Good bilateral air entry without significant crackles or wheezing. There is no significant bronchial sounds. There is no egophony or dullness. Heart: Regular rate and rhythm with an audible S1-S2, no S3 no S4. There is no significant murmur click or rub, PMI was nondisplaced. Abdomen: Positive bowel sounds soft and nontender without palpable masses or organomegaly. There was no guarding or rebound. Extremities: The upper extremities have excellent pulses they are symmetric, no significant petechiae or telangiectasia. No splinter hemorrhages were noted. The lower extremities are free from significant edema. The peripheral pulses were 2+ and symmetric. Neuro: Awake alert oriented to person place and time. There are no acute new gross focal sensory motor deficits. Skin: Evidence of the recent incision and drainage to the pilonidal cyst area. The currently is a 2 x 0.2 x 3 cm area cavity at that site. The packing is removed. And it is repacked with Aquacel silver rope. This goes without significant difficulty. Scant bleeding occurred. No difficulty with excessive bleeding. There is some minimal surrounding erythema which is early improved. In the tenderness is already much improved from admission. Results CBC & Chem 7: 03/31/17 09:03 03/31/17 09:03 Labs: Abnormal Lab Results - Last 24 Hours (Table) 03/31/17 Range/Units 09:03 RBC 4.21 L (4.30-5.90) m/uL Hgb 12.6 L (13.0-17.5) gm/dL Hct 35.4 L (39.0-53.0) % Laboratory Results WBC 9.6 k/uL (3.8-10.6) 03/31/17 09:03 RBC 4.21 m/uL (4.30-5.90) L 03/31/17 09:03 Hgb 12.6 gm/dL (13.0-17.5) L 03/31/17 09:03 Hct 35.4 % (39.0-53.0) L 03/31/17 09:03 MCV 84.0 fL (80.0-100.0) 03/31/17 09:03 MCH 29.9 pg (25.0-35.0) 03/31/17 09:03 MCHC 35.6 g/dL (31.0-37.0) 03/31/17 09:03 RDW 12.6 % (11.5-15.5) 03/31/17 09:03 Plt Count 359 k/uL (150-450) 03/31/17 09:03 Neutrophils % 68 % 03/31/17 09:03 Lymphocytes % 19 % 03/31/17 09:03 Monocytes % 5 % 03/31/17 09:03 Eosinophils % 4 % 03/31/17 09:03 Basophils % 1 % 03/31/17 09:03 Neutrophils # 6.6 k/uL (1.3-7.7) 03/31/17 09:03 Lymphocytes # 1.9 k/uL (1.0-4.8) 03/31/17 09:03 Monocytes # 0.5 k/uL (0-1.0) 03/31/17 09:03 Eosinophils # 0.4 k/uL (0-0.7) 03/31/17 09:03 Basophils # 0.1 k/uL (0-0.2) 03/31/17 09:03 Poikilocytosis Slight 03/31/17 09:03 Sodium 142 mmol/L (137-145) 03/31/17 09:03 Potassium 4.4 mmol/L (3.5-5.1) 03/31/17 09:03 Chloride 104 mmol/L (98-107) 03/31/17 09:03 Carbon Dioxide 28 mmol/L (22-30) 03/31/17 09:03 Anion Gap 10 mmol/L 03/31/17 09:03 BUN 13 mg/dL (9-20) 03/31/17 09:03 Creatinine 0.84 mg/dL (0.66-1.25) 03/31/17 09:03 Est GFR (MDRD) Af Amer >60 (>60 ml/min/1.73 sqM) 03/31/17 09:03 Est GFR (MDRD) Non-Af >60 (>60 ml/min/1.73 sqM) 03/31/17 09:03 Glucose 96 mg/dL (74-99) 03/31/17 09:03 Plasma Lactic Acid Geovanni 0.5 mmol/L (0.7-2.0) L 03/28/17 17:48 Calcium 9.4 mg/dL (8.4-10.2) 03/31/17 09:03 Vancomycin Trough 18.0 ug/mL 03/29/17 14:51 Microbiology 03/29/17 18:53 Cyst Gram Stain - Preliminary 03/29/17 18:53 Cyst Wound Culture - Preliminary 03/29/17 18:53 Cyst Anaerobic Culture - Preliminary Assessment and Plan (1) Pilonidal abscess Narrative/Plan: Pleasant 22-year-old occasional male presents to hospital with increasing pain to his coccyx area. It and treating outpatient setting for infected pilonidal cyst. It however markedly worsened. He has not been taking the operating room in the incision and drainage to the site has occurred. There is a significant defect at this point in time. This causes saline it is packed with Aquacel silver rope. For antibiotic therapy based on the failure of Augmentin and the lack of ALLERGIES, he is placed on oral Augmentin which will give us coverage for staph and strep and anaerobes all related to this tissue area. He has no severe known history of MRSA. He'll be followed in the wound healing center or the outpatient office depending on his availability. He will see the surgeon in the next short period of time to ensure that there's been no other acute changes. Orders for local wound care with Aquacel silver rope every Monday and Monday were provided. The patient's leukocytosis has resolved well as is his fever is she's had a good response incision and drainage and current antibiotic therapy. Status: Acute (2) Failure of outpatient treatment Status: Acute (3) Fever Status: Acute
== END 2017-03-31 16:15 | disposition home health service (06) | DRG 854 ==
LOC: EC 20:55 → 5MS5E 03-28 00:07 → 5ONC 03-28 01:05 → 5MS5E 03-31 14:21
PROVIDERS: ADMIT Surgery Plastic and Reconstructive Surgery; ATTEND Surgery Plastic and Reconstructive Surgery
PROC: 0JB90ZZ Excision of Buttock Subcutaneous Tissue and Fascia, Open Approach (ICD-10-PCS; principal; 2017-03-29 12:30)
DX: A41.9 Sepsis, unspecified organism (principal); L02.31 Cutaneous abscess of buttock; L05.01 Pilonidal cyst with abscess; F64.9 Gender identity disorder, unspecified; F17.200 Nicotine dependence, unspecified, uncomplicated
CPT/HCPCS: 36415; 72193; 80048; 80202; 83605; 85025; 87070; 87075; 87205; 88304; 96365; 99284